=== PATIENT | female | born 1975 | race African-American/Black ===

== ENCOUNTER 2016-05-15 09:27 | Emergency (ER) | payer BC, OTHER ==
[~2016-05-15] VITALS: Ht 154.9 cm; Wt 104.3 kg
[2016-05-15 10:25] LABS: BASOPHILS % (AUTO) 0 % (0-10); EOSINOPHILS # (AUTO) 0.2 10^3/uL (0.0-0.3); EOSINOPHILS % (AUTO) 3 % (0-10); LYMPHOCYTES # (AUTO) 1.9 X 10^3 (1.0-4.0); LYMPHOCYTES % (AUTO) 24 % (12-44); MEAN CORPUSCULAR HEMOGLOBIN 25 PG (25-34); MEAN CORPUSCULAR HGB CONC 33 G/DL (32-36); MEAN CORPUSCULAR VOLUME 77 FL (80-99); MEAN PLATELET VOLUME 10.5 FL (7.4-10.4); MONOCYTES # (AUTO) 0.5 X 10^3 (0.0-1.0); MONOCYTES % (AUTO) 7 % (0-12); NEUTROPHILS # (AUTO) 5.3 X 10^3 (1.8-7.8); NEUTROPHILS % (AUTO) 67 % (42-75); PLATELET COUNT 351 10^3/uL (130-400); RED BLOOD COUNT 5.25 10^6/uL (4.35-5.85); RED CELL DISTRIBUTION WIDTH 15.8 % (10.0-14.5)
[2016-05-15] MEDS ORDERED: LOSA1TAB70 (10:31)
[2016-05-15] MEDS ORDERED: LIRA0.6P3 (10:31)
[2016-05-15] MEDS ORDERED: HYDR-3812 (10:31)
[2016-05-15] MEDS ORDERED: METF500T8 (10:31)
[2016-05-15 10:43] LABS: ALANINE AMINOTRANSFERASE 18 U/L (0-55); ALBUMIN 3.3 G/DL (3.2-4.5); ANION GAP 11 MMOL/L (5-14); ASPARTATE AMINO TRANSFERASE 20 U/L (5-34); BILIRUBIN,TOTAL 0.4 MG/DL (0.1-1.0); BLOOD UREA NITROGEN 11 MG/DL (7-18); BUN/CREATININE RATIO 14; CALCIUM 8.3 MG/DL (8.5-10.1); CARBON DIOXIDE 19 MMOL/L (21-32); CHLORIDE 108 MMOL/L (98-107); CREATININE SERUM 0.78 MG/DL (0.60-1.30); GFR ESTIMATED > 60; GLUCOSE 96 MG/DL (70-105); SODIUM 138 MMOL/L (135-145); TOTAL PROTEIN 6.8 G/DL (6.4-8.2)
[2016-05-15] MEDS ORDERED: KETOROLAC 30 MG/ML VIAL IVP ONE (10:45)
[2016-05-15 10:51] LABS: POTASSIUM 5.1 MMOL/L (3.6-5.0)
[2016-05-15 11:26] LABS: BILIRUBIN,URINE 2+ (NEGATIVE); KETONES,URINE NEGATIVE (NEGATIVE); LEUKOCYTE ESTERASE ,URINE 1+ (NEGATIVE); NITRITE,URINE NEGATIVE (NEGATIVE); PH,URINE 6 (5-9); PROTEIN,URINE 2+ (NEGATIVE); UROBILINOGEN,URINE 1 MG/DL (NORMAL)
[2016-05-15 11:40] LABS: WBC,URINE 0-2 /HPF
--- NOTE | 2016-05-15 11:40 | ED Abdominal Pain ---
General Chief Complaint: Abdominal/GI Problems Stated Complaint: ABD PAIN Nursing Triage Note: PT CO OF ABD PAIN SINCE LAST PM, PT STATES STARTED LAST PM, STATES HAS LOTS OF GAS, STATES PAIN ON L UPPER AND LOWER ABD. STATES HAD DIARRHEA LAST PM. STATES DID ENEMA THIS AM TO TRY AND GET RID OF GAS NO RESULTS Sepsis Screen: No Definite Risk Source of Information: Patient Exam Limitations: No Limitations History of Present Illness Time Seen By Provider: 11:35 Initial Comments The patient is a 40-year-old black female who presents with a chief complaint of left lower quadrant pain. She reports that this began last evening. It has seemed to get worse as time passed. There is some pressure back towards the left flank. She also feels as if she might not be able to urinate and is blocked although this is not apparently the case. There is no past history of kidney stone. She has an incision across the lower abdomen from mid clavicular line to mid clavicular line as a result of a . Timing/Duration: 12-24 Hours Severity/Quality: Moderate Location: LLQ Radiation: Flank Allergies and Home Medications Allergies Coded Allergies: No Known Drug Allergies (Unverified , 05/15/16) Home Medications Hydrocodone/Acetaminophen 1 Each Tablet #60 (Reported) Liraglutide 0.6 Mg/0.1 Ml Pen.injctr #9 (Reported) Losartan/Hydrochlorothiazide 1 Each Tablet #30 (Reported) Metformin HCl 500 Mg Tab.er.24h #60 (Reported) Review of Systems Constitutional: see HPI EENTM: No Symptoms Reported Respiratory: No Symptoms Reported Cardiovascular: No Symptoms Reported Gastrointestinal: Abdominal Pain (left lower quadrant) Genitourinary: See HPI Musculoskeletal: no symptoms reported Skin: no symptoms reported Psychiatric/Neurological: No Symptoms Reported Endocrine: No Symptoms Reported Hematologic/Lymphatic: No Symptoms Reported Past [id number] Hx Patient Social History Alcohol Use: Denies Use Recreational Drug Use: No Smoking Status: Never a Smoker Recent Foreign Travel: No Contact w/Someone Who Travel: No Recent Infectious Disease Expo: No Recent Hopitalizations: No Physical Abuse Screen: No Sexual Abuse: No Seasonal Allergies Seasonal Allergies: No Surgeries HX Surgeries: Yes Surgeries: Hysterectomy Respiratory Hx Respiratory Disorders: No Cardiovascular Hx Cardiac Disorders: Yes Cardiac Disorders: Hypertension Musculoskeletal Hx Musculoskeletal Disorders: Yes Musculoskeletal Disorders: Arthritis Physical Exam Vital Signs VS - Last 72 Hours, by Label 05/15/16 09:30 Temp 95.4 Pulse 115 Resp 18 B/P 111/74 Pulse Ox 95 Capillary Refill : Less Than 3 Seconds General Appearance: mild distress moderate distress HEENT: normal ENT inspection Neck: full range of motion Respiratory: chest non-tender lungs clear normal breath sounds no respiratory distress no accessory muscle use Cardiovascular: normal peripheral pulses regular rate, rhythm no edema no gallop no JVD no murmur Exam Comments There is no tenderness to palpation. Bowel sounds are somewhat hypoactive. The belly is large. There is a horizontal subcutaneous umbilical scar which goes literally from mid clavicular line to mid clavicular line. Progress/Results/Core Measures Results/Orders Lab Results Laboratory Tests Test 05/15/16 10:10 05/15/16 11:00 Range/Units Alanine Aminotransferase (ALT/SGPT) 18 0-55 U/L Albumin 3.3 3.2-4.5 G/DL Alkaline Phosphatase 121 40-136 U/L Anion Gap 11 5-14 MMOL/L Aspartate Amino Transf (AST/SGOT) 20 5-34 U/L BUN/Creatinine Ratio 14 Basophils # (Auto) 0.0 0.0-0.1 10^3/uL Basophils (%) (Auto) 0 0-10 % Blood Urea Nitrogen 11 7-18 MG/DL Calcium Level 8.3 L 8.5-10.1 MG/DL Carbon Dioxide Level 19 L 21-32 MMOL/L Chloride Level 108 H 98-107 MMOL/L Creatinine 0.78 0.60-1.30 MG/DL Eosinophils # (Auto) 0.2 0.0-0.3 10^3/uL Eosinophils (%) (Auto) 3 0-10 % Estimat Glomerular Filtration Rate > 60 Glucose Level 96 70-105 MG/DL Hematocrit 41 35-52 % Hemoglobin 13.2 11.5-16.0 G/DL Lipase 23 8-78 U/L Lymphocytes # (Auto) 1.9 1.0-4.0 X 10^3 Lymphocytes (%) (Auto) 24 12-44 % Mean Corpuscular Hemoglobin 25 25-34 PG Mean Corpuscular Hemoglobin Concent 33 32-36 G/DL Mean Corpuscular Volume 77 L 80-99 FL Mean Platelet Volume 10.5 H 7.4-10.4 FL Monocytes # (Auto) 0.5 0.0-1.0 X 10^3 Monocytes (%) (Auto) 7 0-12 % Neutrophils # (Auto) 5.3 1.8-7.8 X 10^3 Neutrophils (%) (Auto) 67 42-75 % Platelet Count 351 130-400 10^3/uL Potassium Level 5.1 H 3.6-5.0 MMOL/L Red Blood Count 5.25 4.35-5.85 10^6/uL Red Cell Distribution Width 15.8 H 10.0-14.5 % Sodium Level 138 135-145 MMOL/L Total Bilirubin 0.4 0.1-1.0 MG/DL Total Protein 6.8 6.4-8.2 G/DL Urine RBC (Auto) TRACE H 2+ H NEGATIVE White Blood Count 8.0 4.3-11.0 10^3/uL Urine Bacteria TRACE /HPF Urine Bilirubin 2+ H NEGATIVE Urine Casts NONE /LPF Urine Clarity CLEAR Urine Color YELLOW Urine Crystals NONE /LPF Urine Culture Indicated NO Urine Glucose (UA) NEGATIVE NEGATIVE Urine Ketones NEGATIVE NEGATIVE Urine Leukocyte Esterase 1+ H NEGATIVE Urine Mucus NEGATIVE /LPF Urine Nitrite NEGATIVE NEGATIVE Urine Protein 2+ H NEGATIVE Urine RBC NONE /HPF Urine Specific [place] 1.030 H 1.016-1.022 Urine Squamous Epithelial Cells 5-10 /HPF Urine Urobilinogen 1 NORMAL MG/DL Urine WBC 0-2 /HPF Urine pH 6 5-9 My Orders Orders-TIAGO MAJOR MD Cbc With Automated Diff (05/15/16 10:15) Comprehensive Metabolic Panel (05/15/16 10:15) Ua Culture If Indicated (05/15/16 10:15) Ketorolac Injection (Toradol Injection) (05/15/16 10:45) Fentanyl Injection (Sublimaze Injection (05/15/16 11:45) Ct Abd/Pelvis Wo(Kidney Stone) (05/15/16 11:33) Lipase (05/15/16 12:31) Polyethylene Glycol Powder Pkt (Miralax (05/15/16 13:30) Medications Given in ED Current Medications Medications Dose Ordered Sig/Radha Route Start Time Stop Time Status Last Admin Dose Admin Fentanyl Citrate 50 mcg ONCE ONCE IVP 05/15/16 11:45 05/15/16 11:46 DC 05/15/16 12:08 50 MCG Ketorolac Tromethamine 30 mg ONCE ONCE IVP 05/15/16 10:45 05/15/16 10:46 DC 05/15/16 10:55 30 MG Vital Signs/I&O Vital Sign - Last 12Hours 05/15/16 09:30 Temp 95.4 Pulse 115 Resp 18 B/P 111/74 Pulse Ox 95 Blood Pressure Mean: 86 Departure Communication Progress Notes CT scan showed the possibility of a very small distal ureteral stone without evidence of hydroureter ureter or nephrosis. Stranding was reported raising the possibility of pancreatitis. Clinically there was no pain in that area. Subsequently lipase was negative. Was also noted that there was considerable stool throughout the bowel including right: Stomach and small intestine Impression Impression: Primary Impression: abdominal pain Additional Impression: constipation Disposition: 01 HOME, SELF-CARE Condition: Stable/Unchanged Departure-Patient Inst. Decision time for Depature: 13:27 Referrals: NO,LOCAL PHYSICIAN (PCP) Primary Care Physician Patient Instructions: Constipation, Adult (DC) Add. Discharge Instructions: All discharge instructions reviewed with patient and/or family. Voiced understanding. If no bowel movement I8 p.m. repeat the dose of MiraLAX (17 g) Lots of liquids TIAGO MAJOR MD May 15, 2016 11:40
[2016-05-15] MEDS ORDERED: fentaNYL INJECTION 100 MCG/2 ML AMP IVP ONE (11:45)
--- NOTE | 2016-05-15 12:21 | Diagnostic Imaging Report ---
PROCEDURE: CT urinary tract, rule out kidney stone. TECHNIQUE: Multiple contiguous axial images were obtained through the abdomen and pelvis without the use of intravenous contrast. INDICATION: Left-sided abdominal pain x1 day. COMPARISON: None. FINDINGS: Included views of the lung bases are clear. CT abdomen: The ureters cannot be followed continuously. There is a 3 mm calculus in the region of the distal left ureter (image 119, series 3). There is, however, no hydroureteronephrosis or other evidence of obstruction. No renal calculus seen on either side. No focal renal lesions are identified on this exam. There is moderate abnormal stranding of the retroperitoneal fat extending from the level of the pancreas into the pelvis. Pancreas otherwise has a normal noncontrast CT appearance. There is small amount of free fluid within the pelvis as well. There is no loculated fluid collection nor pneumoperitoneum. The spleen, liver, and adrenal glands have an unremarkable noncontrast CT appearance. No abnormal mesenteric or retroperitoneal adenopathy is seen. Bony structures show no acute abnormalities. Small bowel loops are nondistended. Moderate stool is seen scattered throughout the colon. Normal appendix cannot be adequately identified. Bony structures show no acute abnormalities. CT pelvis: Urinary bladder is unopacified and nondistended. No calculi are seen within the urinary bladder. Again, there is stranding of the retroperitoneal fat extending from the abdomen into the pelvis as well as small amount of free fluid within the pelvis. There is no loculated fluid collection or free air within the pelvis. No abnormal adenopathy is seen. Bony structures show no acute abnormalities. IMPRESSION: 1. Moderate amount of abnormal stranding of the retroperitoneal fat extending from the abdomen into the pelvis. Appearance is commonly seen with pancreatitis, although pancreas otherwise has an unremarkable noncontrast CT appearance. Other retroperitoneal inflammatory or infectious processes such as retroperitoneal fibrosis cannot be entirely excluded. Correlation with amylase/lipase is recommended. 2. Small amount of free fluid within the pelvis, but no loculated fluid collection or free air within the abdomen or pelvis. 3. Punctate calculus in the region of the distal left ureter. Although this could represent a ureteral calculus, there is no hydroureteronephrosis or other evidence of obstruction. Venous phlebolith is not entirely excluded. There is no prior available for comparison. Dictated by: Dictated on workstation # [id number]
[2016-05-15] MEDS ORDERED: POLYETHYLENE GLYCOL 17 GM (MIRALAX) PACK PO ONE (13:30)
[2016-05-15 16:00] VITALS: BP 110/74
== END 2016-05-15 16:00 | disposition home or self-care (01) ==
LOC: EDUNIT# 09:27 → ER 09:29
DX: R10.32 Left lower quadrant pain (principal); K59.00 Constipation, unspecified; N20.1 Calculus of ureter
CPT/HCPCS: 36415; 74176; 80053; 81000; 83690; 85025; 96374; 96375

== ENCOUNTER → 2018-11-05 | Outpatient (CLI) | payer BC ==
[~2018-11-05] MED LIST: ACHD5005; LIRA0.6P3; LOSA1TAB23; METF500T8
--- NOTE | 2018-11-05 17:05 | Diagnostic Imaging Report ---
INDICATION: Routine screening. COMPARISON: Prior mammogram from 06/25/2015. EXAMINATION: 2D and 3D bilateral screening mammography was performed with CAD. The current study was also evaluated with a Computer Aided Detection (CAD) system. FINDINGS: Scattered fibroglandular densities are identified, bilaterally. Postsurgical changes of breast reduction surgery is again noted. No dominant mass or malignant appearing microcalcifications are seen. Axillae are unremarkable. IMPRESSION: No mammographic features suspicious for malignancy are identified. ACR BI-RADS Category 2: Benign findings. Result letter will be mailed to the patient. Note: At least 10% of breast cancer is not imaged by mammography. Dictated on workstation # [id number]
== END ==
LOC: RAD 08:25
PROVIDERS: ATTEND Obstetrics & Gynecology
DX: Z12.31 Encounter for screening mammogram for malignant neoplasm of breast (principal); Z98.86 Personal history of breast implant removal
CPT/HCPCS: 77067